=== PATIENT | male | born 2000 | race African-American/Black ===

== ENCOUNTER → 2019-09-20 09:44 | Outpatient (CLI) | payer BC ==
[~2019-09-20 09:44] MED LIST: AMOXICILLIN500 M1 PO; ZOFRAN ODT4 MG/UDTAB PO
== END | disposition home or self-care (01) ==
LOC: D.MRI 09:44
PROVIDERS: ATTEND Clinical Nurse Specialist Family Health
DX: M25.561 Pain in right knee (principal); M25.562 Pain in left knee

== ENCOUNTER 2019-10-13 14:08 | Emergency (ER) | payer BC ==
[~2019-10-13] VITALS: Ht 175.3 cm; Wt 68.2 kg
[2019-10-13 14:29] VITALS: Ht 175.3 cm; Wt 68.2 kg
[2019-10-13 15:21] LABS: BASOPHILS 0.2 % (0-2); EOSINOPHILS 0 % (0-7); HEMATOCRIT 50.8 % (42.0-54.0); HEMOGLOBIN 18.3 g/dL (13.5-17.5); IMMATURE GRANULOCYTES 0.2 % (0-5); LYMPHOCYTES 15.1 % (15-50); MCH 28.5 pg (26.0-34.0); MCV 79.1 fL (80.0-100.0); MEAN PLATELET VOLUME 9.9 fL (7.4-10.4); MONOCYTES 19.6 % (2-11); NEUTROPHILS 64.9 % (40-80); PLATELET COUNT 161 10x3/uL (130-400); RBC 6.42 10x6/uL (4.20-6.10); RDW 13.2 % (11.5-14.5); WBC 5.4 10x3/uL (4.8-10.8)
[2019-10-13 15:27] LABS: CALC OSMOLALITY 265 mosm/kg (275-300); CALCIUM 9.4 mg/dL (8.5-10.1); CARBON DIOXIDE 24.9 mmol/L (21.0-32.0); CHLORIDE - SERUM 95 mmol/L (98-107); CREATININE - SERUM 1.1 mg/dL (0.6-1.3); GLUCOSE 114 mg/dL (74-106); POTASSIUM - SERUM 3.7 mmol/L (3.5-5.1); SODIUM 133 mmol/L (136-145); UREA NITROGEN 9 mg/dL (7-18); eGFR NON AFRICAN AMERICAN > 90 mL/min (90-120)
[2019-10-13 15:46] LABS: ALBUMIN 4.3 g/dL (3.4-5.0); ALKALINE PHOSPHATASE 112 U/L (46-116); ALT (SGPT) 28 U/L (10-68); BILIRUBIN - TOTAL 0.35 mg/dL (0.2-1.3); CKMB 0.1 U/L (0.0-3.6); CREATINE KINASE 239 UL (21-232); PROTEIN - SERUM 8.4 g/dL (6.4-8.2)
[2019-10-13 15:48] LABS: TROPONIN-I < 0.017 ng/mL (0.000-0.060)
[2019-10-13] MEDS ORDERED: AMOXICILLIN500 M1 PO (18:57)
[2019-10-13] MEDS ORDERED: ZOFRAN ODT4 MG/UDTAB PO (18:57)
[2019-10-13 19:25] VITALS: BP 121/61
== END 2019-10-13 19:25 | disposition home or self-care (01) ==
LOC: D.ER 14:08
PROVIDERS: Emergency Medicine
DX: J06.9 Acute upper respiratory infection, unspecified (principal); R11.0 Nausea

== ENCOUNTER 2021-02-04 11:18 | Day surgery (SDC) | payer BC ==
[~2021-02-04] VITALS: Ht 177.8 cm; Wt 68.0 kg
--- NOTE | ~2021-02-04 | OP ---
PATIENT NAME: ROMEO YEH MEDICAL RECORD: [id number] :99 LOCATION:[facility] ADMISSION DATE: SURGEON: WILBERTO HODGSON MD DATE OF OPERATION: 02/04/2021 PREOPERATIVE DIAGNOSES: 1. Left knee pain. 2. Osteochondral defect, patella. 3. Loose body. POSTOPERATIVE DIAGNOSES: 1. Left knee pain. 2. Osteochondral defect, patella. 3. Loose body. PROCEDURES PERFORMED: Left knee arthroscopy with chondroplasty, limited synovectomy and removal of loose body. INDICATIONS FOR THE PROCEDURE: Mr. Yeh is a 20-year-old male with history of left knee pain. He injured his knee a few years ago and sustained osteochondral defect of the patella. He has developed a loose body that has continued to give him trouble. He has elected to proceed with surgery for knee arthroscopy with debridement and removal of the loose body. He may also return for a second procedure for cartilage repair depending on how this goes. Risks, benefits and alternatives of surgery were discussed with the patient and consent was obtained. DESCRIPTION OF PROCEDURE: The patient was met in the holding area where his identity and confirmation of procedure was performed. The left lower extremity was marked. He was taken to the operating room. He was placed supine on the operating table and anesthesia was administered. Tourniquet was applied to the left thigh and the left leg was positioned in the leg chou. Left lower extremity was prepped and draped in the sterile fashion. The patient received preoperative antibiotics and timeout was performed prior to initiating the case. On initiation of the case, the leg was exsanguinated and the tourniquet was raised. Total tourniquet time was 38 minutes. We began with placement of our superior medial inflow portal, then filled the knee with fluid. We then placed our anterolateral portal, inserted the camera and placed our anterior medial portal under direct visualization. Diagnostic knee arthroscopy was performed. There was significant fraying at the undersurface of the patella with a large osteochondral defect towards the inferior pole. The trochlea was in good condition. There was a large loose body in the medial gutter. The medial compartment was in good condition. The ACL was intact. Lateral compartment was okay. A grasper was used to grab the loose body and it was able to be removed through our medial portal. It was measured to be greater than 1 cm. Chondroplasty was performed at the undersurface of the patella and after completing the chondroplasty, the defect appeared to extend almost the entire length of the patella, approximately 2 x 1.5 cm. Limited synovectomy was performed at the anterior aspect of the tissues of the knee as well as the infrapatellar fat pad. Before and after images were obtained and this completed our procedure. Instruments were removed and the knee was drained of fluid. Portal sites were injected with 0.25% Marcaine with epinephrine. These were then closed with nylon suture. Sterile dressing was placed. The patient was turned back over to anesthesia where he was awakened, extubated, and taken to the recovery room in stable condition. OPERATIVE REPORT [id number] ROMEO YEH POSTOPERATIVE PLAN: The patient is going to return home with his family today. He may be weightbearing as tolerated on the left lower extremity. He will start physical therapy in 2-3 days and we will see him back in clinic in 2 weeks. COMPLICATIONS: None. ESTIMATED BLOOD LOSS: 5 mL. ANESTHESIA: General. TRANSINT:[id number] Voice Confirmation ID: [id number] DOCUMENT ID: [id number] WILBERTO HODGSON MD CC: [id number] DICTATION DATE: 02/04/211815 [employer] [employer]: 02/04/21 2330 [facility] 02/04/21 [facility] [address] [place] [address]
[~2021-02-04 11:18] MED LIST changes: +NORCO 7.5-3251 EACH GT
[2021-02-04 12:53] VITALS: BP 128/92; Ht 177.8 cm; Wt 68.0 kg
--- NOTE | 2021-02-04 19:06 | NUR ---
1840 IV REMOVED AND PRESSURE HELD. INSTRUCTIONS GIVEN.
== END 2021-02-04 19:00 | disposition home or self-care (01) ==
LOC: D.OPS 11:18
PROVIDERS: ATTEND Orthopaedic Surgery
DX: M25.562 Pain in left knee (principal); M93.262 Osteochondritis dissecans, left knee